=== PATIENT | female | born 1980 | race African-American/Black ===

== ENCOUNTER 2022-12-27 14:52 | Emergency (ER) | payer MEDICAID ==
[~2022-12-27] VITALS: Ht 165.1 cm; Wt 54.0 kg
[2022-12-27 14:58] VITALS: BP 149/98
== END 2022-12-27 16:06 | disposition left against medical advice (07) ==
LOC: ER 15:16
DX: G93.40 Encephalopathy, unspecified (principal)
CPT/HCPCS: 99283